=== PATIENT | male | born 2000 | race Two or more races ===

== ENCOUNTER 2021-01-27 09:51 | Emergency (ER) | payer OTHER ==
[~2021-01-27] VITALS: Ht 180.3 cm; Wt 65.0 kg
[2021-01-27] MEDS ORDERED: NICO21DI6 TOP (15:45)
[2021-01-27 16:50] VITALS: BP 132/70
== END 2021-01-27 16:51 | disposition home or self-care (01) ==
LOC: M ED 09:51
DX: F41.9 Anxiety disorder, unspecified (principal); F32.9 Major depressive disorder, single episode, unspecified; F17.293 Nicotine dependence, other tobacco product, with withdrawal; R45.4 Irritability and anger; Z88.0 Allergy status to penicillin